=== PATIENT | male | born 1980 | race African-American/Black ===

== ENCOUNTER 2021-10-17 12:28 | Emergency (ER) | payer OTHER ==
[2021-10-17] MEDS ORDERED: KETOROLAC TROMETHAMINE 30 MG/1 ML VIAL IM ONE (13:40)
[2021-10-17 14:19] LABS: ALBUMIN 4.5 g/dl (3.4-5.0); BILIRUBIN,TOTAL 0.4 mg/dl (0.2-1); CALCIUM 9.1 mg/dl (8.5-10); CREATININE 0.9 mg/dl (0.55-1.3); TOT PROT 6.9 g/dl (6.4-8.2)
[2021-10-17 15:07] LABS: BASO % 0.2 % (0-2.0); EOS % 0.5 % (0-4.5); HEMOGLOBIN 13.3 GM/dL (11.7-16.9); LYMPH % 9.1 % (8-40); MCH 29.7 pg (25.7-33.7); MCHC 33.4 g/dl (32.0-35.9); MEAN CELL VOLUME 89.1 fl (80-96); MEAN PLT VOLUME 9.6 fl (7.5-11.1); MONO % 5.9 % (3.8-10.2); NEUT % 84.3 % (42.8-82.8); PLATELET COUNT 169 10^3/uL (134-434); RBC 4.49 M/mm3 (4.00-5.60); RDW 14.1 % (11.9-15.9); WHITE BLOOD COUNT 12.1 K/mm3 (4.0-10.0)
[2021-10-17 15:44] VITALS: BP 129/74; PULSE 77; TEMP 98.2; BMI 29.7
[2021-10-17] MEDS ORDERED: cefTRIAXone SODIUM 1 GM VIAL ONE (17:02)
[2021-10-17 17:10] LABS: EPITHELIAL CELLS RARE /hpf
== END 2021-10-17 17:14 | disposition home or self-care (01) ==
LOC: FER 12:28
PROC: 3E02329 Introduction of Other Anti-infective into Muscle, Percutaneous Approach (ICD-10-PCS; principal; 2021-10-17)
PROC: 3E0233Z Introduction of Anti-inflammatory into Muscle, Percutaneous Approach (ICD-10-PCS; 2021-10-17)
DX: N45.3 Epididymo-orchitis (principal)
CPT/HCPCS: 36415; 76870-TC; 80053; 81003; 81015; 85025; 86735; 87086; 87491; 87591; 87661; 99284-25